=== PATIENT | male | born 1970 | race Caucasian/White ===

== ENCOUNTER 2016-09-08 14:08 | Emergency (ER) | payer MEDICARE | END 2016-09-08 15:40 | disposition home or self-care (01) | LOC: ER1 14:08 | DX: S39.012A Strain of muscle, fascia and tendon of lower back, initial encounter (principal); M54.30 Sciatica, unspecified side; Z88.5 Allergy status to narcotic agent; X58.XXXA Exposure to other specified factors, initial encounter | CPT/HCPCS: 96372; 99283; J1100; J1885 ==

== ENCOUNTER 2020-12-07 22:30 | Emergency (ER) | payer OTHER ==
[~2020-12-07 22:30] MED LIST: IBUPROFEN800 MG PO
[2020-12-07] MEDS ORDERED: PERCOCET 5-3251 EACH PO (23:42)
[2020-12-07] MEDS ORDERED: IBU800 MG PO (23:44)
== END 2020-12-08 01:46 | disposition home or self-care (01) ==
LOC: ER1 22:30
DX: M54.16 Radiculopathy, lumbar region (principal)
CPT/HCPCS: 72100; 73502; 99283; J1650; J1885